=== PATIENT | female | born 1970 | race Caucasian/White ===

== ENCOUNTER 2016-12-25 16:16 | Emergency (ER) | payer SELFPAY ==
[~2016-12-25] VITALS: Ht 177.8 cm; Wt 75.0 kg
[2016-12-25 16:18] VITALS: BP 139/80; PULSE 78; RESP 15; TEMP 98.7; O2SAT 97
[2016-12-25 18:07] VITALS: BP 133/70; PULSE 61; RESP 16; TEMP 97.9; O2SAT 97
[2016-12-25] MEDS ORDERED: traMADol HCL 50 MG TAB PO ONE (18:30)
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
[2016-12-25] MEDS ORDERED: CLIN1CAP6 PO (19:40)
[2016-12-25] MEDS ORDERED: TRAM50TA PO (19:40)
== END 2016-12-25 20:04 | disposition home or self-care (01) ==
LOC: NEPD 16:16
DX: K04.7 Periapical abscess without sinus (principal); S00.33XA Contusion of nose, initial encounter; W22.8XXA Striking against or struck by other objects, initial encounter
CPT/HCPCS: 70486; 99285

== ENCOUNTER 2017-12-31 19:38 | Observation (INO) ==
--- NOTE | 2017-12-31 20:20 | ED ---
HPI General Chief Complaint: Chest Pain Stated Complaint: Rt Face Pain/Chest Pain Time Seen by Provider: 12/31/17 20:13 Source: patient Mode of arrival: ambulatory Limitations: no limitations History of Present Illness HPI narrative: 47-year-old female presents to the emergency department for complaint of right-sided facial pain and jaw pain times 7 days and 3 days of left-sided chest discomfort. Patient denies personal history of CAD hypertension or diabetes admits to tobaccoism. Prior treatment for high cholesterol. Patient states that she has had similar presentations of current symptoms in the past each time she has dental issues or dental infection the pain begins in the jaw increases to facial pain then referred to the ear and neck on the ipsilateral side and typically approximately 3-4 days later developed some type of chest discomfort. Patient states she was recently released from detention during which time over 2 months. She was on several rounds of oral antibiotic for dental infections was seen by a dentist and had 2 teeth extracted from the left side. Patient states that she is scheduled to see a dentist this upcoming week for possible dental extraction of incisors. Patient states that dental pain increased tonight and after onset of increased dental pain started noticing increased chest pain. Patient rates her general pain 9/ 10 in intensity in her chest discomfort 7/10 in intensity. Chest pain is nonradiating. Patient's had no shortness of breath no sweats no nausea or vomiting. Patient has had subjective fever without chills. Patient states she is allergic to aspirin but is able to take ibuprofen and Aleve. Patient is also been taking acetaminophen. Patient denies any substance use or tobacco use although admits to prior substance abuse approximately 10 years ago. Patient denies any injury or fall. Patient is unable to identify exacerbating or alleviating factors although palpation of the chest wall does seem to aggravate her chest discomfort which is sharp and stabbing in nature and taking a deep breath as well seems to aggravate her chest discomfort. Patient denies any lower extremity pain or swelling. No recent long distance travel protracted bedrest or surgical procedure. No history of DVT or PE. Patient takes no hormone replacement therapy. MD complaint: Reports chest pain STEMI Alert: No Onset (ago): day(s) (chest pain x 23 days; dental pain x 7 days) Duration: constant Onset: other (after increasing facial dental pain) Pain location: Reports left chest Severity: severe (chest pain 7/10; facial dental pain 9/10) Severity scale (1-10): 7 Quality: Reports sharp Pain radiation: Reports none Relieving factors: nothing Exacerbating factors: inspiration and palpation Context: Reports other (dental pain); Denies recent illness, recent surgery, recent immobilization, recent travel, trauma/injury, new medications and history of DVT/PE Associated symptoms: Reports fever (subjective); Denies nausea, vomiting, diaphoresis, dyspnea, sense of impending doom, syncope, palpitations, cough and leg swelling Treatments prior to arrival chest pain: Reports other (tylenol and ibuprofen) Related Data On Oral Contraceptives: No Home Medications Medication Instructions Recorded Confirmed No Known Home Medications 12/31/17 12/31/17 Allergies Allergy/AdvReac Type Severity Reaction Status Date / Time aspirin Allergy Severe EDEMA Verified 12/31/17 20:53 cephalexin Allergy Severe ANAPHYLAXIS Verified 12/31/17 20:53 Penicillins Allergy Severe RESPIRATORY Verified 12/31/17 20:53 DISTRESS Review of Systems ROS: all other systems reviewed are negative PMFSH History History Provided By: Patient and Medical Record Medical History Medical History Hx of cervical cancer (Acute) Surgical History Surgical History H/O tubal ligation (Acute) Hx of section (Acute) Hx of colposcopy with cervical biopsy (Acute) Social History Social History Substance History: Past History Second Hand Smoke Exposure: No Smoking Status: Former smoker How Often Do You Have a Drink Containing Alcohol: Monthly or less Recent Travel in [facility] within the Last 8 Weeks: No Recent Out of Country Travel within the Last 8 Weeks: No Exam Narrative Exam Narrative: GENERAL: Well-nourished, well-developed patient. SKIN: Focused skin assessment warm/dry. HEAD: Normocephalic. EYES: No scleral icterus. No injection or drainage. ENT: Mucous membranes moist airway is patent poor dentition with several loose teeth and gingivitis no edema of the soft tissue or purulent drainage, no trismus. NECK: Supple, trachea midline. No JVD or lymphadenopathy. CARDIOVASCULAR: Regular rate and rhythm without murmurs, gallops, or rubs. No murmur. RESPIRATORY: Breath sounds equal bilaterally. No accessory muscle use. GASTROINTESTINAL: Abdomen soft, non-tender, nondistended. MUSCULOSKELETAL: No cyanosis, or edema. BACK: Nontender without obvious deformity. No CVA tenderness. Course Initial Documented Vital Signs Temperature 97.8 F 12/31/17 19:42 Pulse Rate 69 12/31/17 19:42 Respiratory Rate 20 12/31/17 19:42 Blood Pressure 180/83 H 12/31/17 19:42 Pulse Oximetry 99 12/31/17 19:42 Last Documented Vital Signs Temperature 97.8 F 12/31/17 19:42 Pulse Rate 66 12/31/17 20:50 Respiratory Rate 16 12/31/17 20:50 Blood Pressure 110/53 L 12/31/17 20:50 Pulse Oximetry 99 12/31/17 20:53 Medical Decision Making MDM Narrative Medical decision making narrative: 47-year-old female presents to the emergency department for recurrent dental pain and facial pain as well as complaint of chest pain; patient placed on monitor IV access obtained specimens collected and sent for resulting. CBC w/diff, ekg, and cxr within normal range Chest pain 0/10 in intensity after sublingual nitro glycerin x3; jaw pain persistent but tolerable. 47-year-old female with prior history of high cholesterol and prior tobacco use presents with left-sided chest pain responsive to sublingual nitroglycerin we will admit to chest pain center per protocol at this point time afebrile no tachycardia normal white cell count and differential no murmurs suspicion is low for endocarditis. Patient be started on clindamycin for recurrent dental infection dental pain. Obs admit to [facility] service for MANAGER LSW protocol, discussed with Dr Luther. Medical Screen Exam Complete: Yes Emergency Medical Condition: Yes Differential Diagnosis Differential Diagnosis: dentalgia, dental abscess, periodontal disease, chest pain, acs, mi, endocarditis Medical Records Medical records reviewed: Yes I reviewed the patient's medical records. Lab Data Result diagrams: 12/31/17 20:35 12/31/17 20:35 Lab Results 12/31/17 12/31/17 12/31/17 Range/Units 20:35 20:35 20:35 CBC w Diff Auto diff final WBC 10.3 (4.0-11.0) th/mm3 RBC 4.44 (4.00-5.30) mil/mm3 Hgb 13.2 (11.6-15.3) gm/dL Hct 39.4 (35.0-46.0) % MCV 88.7 (80.0-100.0) fL MCH 29.8 (27.0-34.0) pg MCHC 33.6 (32.0-36.0) % RDW 12.7 (11.6-17.2) % Plt Count 317 (150-450) th/mm3 MPV 8.6 (7.0-11.0) fL Neut % (Auto) 63.1 (16.0-70.0) % Lymph % (Auto) 30.2 (9.0-44.0) % Young % (Auto) 4.4 (0.0-8.0) % Eos % (Auto) 1.4 (0.0-4.0) % Baso % (Auto) 0.9 (0.0-2.0) % Neut # (Auto) 6.5 (1.8-7.7) th/mm3 Lymph # (Auto) 3.1 (1.0-4.8) th/mm3 Young # (Auto) 0.5 (0.0-0.9) th/mm3 Eos # (Auto) 0.1 (0.0-0.4) th/mm3 Baso # (Auto) 0.1 (0.0-0.2) th/mm3 WBC Differential . Differential Comment . PT 9.6 L (9.8-11.6) sec INR 0.9 Ratio APTT 25.7 (24.3-30.1) sec Sodium 140 (136-145) meq/L Potassium 4.0 (3.5-5.1) meq/L Chloride 104 (98-107) meq/L Carbon Dioxide 26.7 (21.0-32.0) meq/L Anion Gap 9 (5-15) meq/L BUN 15 (7-18) mg/dL Creatinine 0.77 (0.50-1.00) mg/dL Estimated GFR 80 L (>89) mL/min Random Glucose 85 (74-106) mg/dL Calcium 8.6 (8.5-10.1) mg/dL Magnesium 1.9 (1.5-2.5) mg/dL Total Bilirubin 0.1 L (0.2-1.0) mg/dL AST 19 (15-37) U/L ALT 22 (10-53) U/L Alkaline Phosphatase 97 (45-117) U/L Total Creatine Kinase 106 (26-192) U/L CK-MB (CK-2) 2.6 (0.5-3.6) ng/mL Troponin I Less than 0.02 L (0.02-0.05) ng/mL Total Protein 6.7 (6.4-8.2) g/dL Albumin 3.2 L (3.4-5.0) g/dL Imaging Data Radiologist's impression: Chest X-Ray 12/31/17 20:14 CONCLUSION: No acute cardiopulmonary disease. ECG Data EKG Prior to Arrival: No Prior ECG tracings: not available for review Interpretation: EKG: Normal sinus rhythm rate [address] elevation injury pattern or ectopy noted normal axis Discharge Plan Discharge Disposition Patient Disposition: 30 Still Patient Discharge Condition Condition: Stable Discharge Details Diagnosis: Chest pain, Dentalgia Physicians Team ED Provider: Danica Stern Primary Care Provider: Primary Care Radha Jha Rxs /Orders / Referrals /Forms Prescriptions: No Action No Known Home Medications RF: 0 Discharge Instructions Patient Printed Instructions: Chest Pain (ED) Status ED Status: With Doctor
[2017-12-31] MEDS: Sodium Chlor 0.9% Inj 500 ML IV.CONT SCH (20:35)
[2017-12-31 20:43] LABS: Baso # (Auto) 0.1 th/mm3 (0.0-0.2); Baso % (Auto) 0.9 % (0.0-2.0); Eos # (Auto) 0.1 th/mm3 (0.0-0.4); Eos % (Auto) 1.4 % (0.0-4.0); Hematocrit 39.4 % (35.0-46.0); Hemoglobin 13.2 gm/dL (11.6-15.3); Lymph # (Auto) 3.1 th/mm3 (1.0-4.8); Lymph % (Auto) 30.2 % (9.0-44.0); Mean Corpuscular HGB Conc 33.6 % (32.0-36.0); Mean Corpuscular Hemoglobin 29.8 pg (27.0-34.0); Mean Corpuscular Volume 88.7 fL (80.0-100.0); Mean Platelet Volume 8.6 fL (7.0-11.0); Mono # (Auto) 0.5 th/mm3 (0.0-0.9); Mono % (Auto) 4.4 % (0.0-8.0); Neut # (Auto) 6.5 th/mm3 (1.8-7.7); Neut % (Auto) 63.1 % (16.0-70.0); Platelet Count 317 th/mm3 (150-450); Red Blood Count 4.44 mil/mm3 (4.00-5.30); Red Cell Distribution Width 12.7 % (11.6-17.2); White Blood Count 10.3 th/mm3 (4.0-11.0)
--- NOTE | 2017-12-31 20:55 | XR ---
EXAM DATE: 12/31/2017 8:52 PM EDT AGE/SEX: 47 years / Female INDICATIONS: Chest pain with black and green sputum. CLINICAL DATA: This is the patient's initial encounter. Patient reports that signs and symptoms have been present for 1 week and indicates a pain score of 6/10. MEDICAL/SURGICAL HISTORY: . Tooth infection. None. COMPARISON: No prior exams available for comparison. FINDINGS: A single AP view of the chest demonstrates the lungs to be symmetrically aerated without evidence of mass, infiltrate or effusion. The cardiomediastinal contours are unremarkable. Osseous structures a re intact. CONCLUSION: No acute cardiopulmonary disease. Electronically signed by: Donald Hernandez MD 12/31/2017 8:54 PM EDT
[2017-12-31 21:03] LABS: Activated Partial Thrombo Time 25.7 sec (24.3-30.1); INR 0.9 Ratio; Prothrombin Time 9.6 sec (9.8-11.6)
[2017-12-31 21:30] LABS: Chloride 104 meq/L (98-107); Sodium 140 meq/L (136-145)
[2017-12-31 21:35] LABS: Albumin 3.2 g/dL (3.4-5.0); Anion Gap 9 meq/L (5-15); Blood Urea Nitrogen 15 mg/dL (7-18); Calcium 8.6 mg/dL (8.5-10.1); Carbon Dioxide 26.7 meq/L (21.0-32.0); Glucose,Random 85 mg/dL (74-106); Magnesium 1.9 mg/dL (1.5-2.5)
[2017-12-31 21:38] LABS: Alanine Aminotransferase 22 U/L (10-53); Aspartate Aminotransferase 19 U/L (15-37); Glomerular Filtration Rate 80 mL/min (>89)
[2017-12-31 21:40] LABS: Total Protein 6.7 g/dL (6.4-8.2)
[2017-12-31 21:41] LABS: Alkaline Phosphatase 97 U/L (45-117); Creatine Kinase 106 U/L (26-192)
[2017-12-31 21:53] LABS: Creatine Kinase MB 2.6 ng/mL (0.5-3.6)
[2017-12-31] MEDS ORDERED: Sod Chloride 0.9% Inj 1,000 ML IV.SIG SCH (22:00)
[2018-01-01] MEDS: Acetaminophen 325 MG Tablet PO PRN ×2 (00:23→08:08)
[2018-01-01 00:26] LABS: Creatine Kinase 95 U/L (26-192)
[2018-01-01] MEDS: Sodium Chlor 0.9% Inj 500 ML IV.CONT SCH (03:09)
[2018-01-01 03:11] LABS: Creatine Kinase 85 U/L (26-192)
[2018-01-01 04:17] VITALS: PULSE 60
--- NOTE | 2018-01-01 07:26 | P.HP ---
History of Present Illness Primary Care Physician: No Primary Care Physician Chief Complaint: Chest pain and dental pain History of Present Illness: 47-year-old female with no chronic medical illnesses who presented to the hospital because of multiple complaints of dental pain and chest pain. Patient states that both of which have been ongoing for the last 2 weeks. She indicates that she has pain is located on the left sternal border without any radiation to the neck, back, shoulder, arm. She states that the pain has been intermittent usually happening when she is at rest, states that the pain is an 8 /10 on pain scale lasting anywhere from seconds to 5 minutes at a time and resolves on its own. He denies any exertional chest discomfort. He denies any nausea, vomiting, lightheadedness, dizziness, diaphoresis. Indicates that she has had some minimal shortness of breath. She denies any fever, chills, cough, hemoptysis. Patient is also had dental pain over the last 2 weeks as well. She does have significant dental problems making it difficult for her to eat. She has been going to the dentist over the last couple months. She did have 2 teeth removed 2 months ago. She does have an appointment on Thursday for further evaluation at the dentist. Presently the patient is asymptomatic. Patient with minimal risk factors to include history of tobacco use, family history of heart disease. Patient states that approximately 4 years ago she did undergo cardiac evaluation with serial cardiac enzymes, EKGs and was ruled out for any acute coronary event and discharged home. Patient has never undergone any cardiac stress testing. - Diagnosis (1) Chest pain (2) Dentalgia Review of Systems All other systems reviewed negative except as stated in HPI Ears, Nose, Mouth, and Throat: Reports mouth pain Cardiovascular: Reports chest pain PMFSH - History History Provided By: Patient, Medical Record - Medical History Medical History: Medical History (Last Reviewed 01/01/18 @ 07:21 by MADI Saeed) Hx of cervical cancer - Surgical History Surgical History: Surgical History (Last Reviewed 01/01/18 @ 07:21 by MADI Saeed) H/O tubal ligation Hx of section Hx of colposcopy with cervical biopsy - Family History Family History: Family History (Last Updated 01/01/18 @ 07:17 by MADI Saeed) Mother Family history of breast cancer Father Family history of myocardial infarction - Tobacco History Second Hand Smoke Exposure: No Tobacco Use In Past 30 Days: No Smoking Status: Former smoker Number of Pack Years (if former smoker): 33 - Alcohol History How Often Do You Have a Drink Containing Alcohol: Monthly or less - Substance Use History Substance History: Past History - Substance Use Type Crack/Cocaine Last Used: 2006 - Travel History Recent Travel in the [place] Within the Last 8 Weeks: No Recent Travel Out of the Country Within the Last 8 Weeks: No - Immunization History Tetanus Immunization: Unsure Medications and Allergies Active Medications: Active Medications Acetaminophen (Tylenol) 650 mg PO Q4H PRN PRN Reason: pain 1 to 10 Last Admin: 01/01/18 00:23 Dose: 650 mg Sodium Chloride (Ns Inj) 500 mls @ 70 mls/hr IV.CONT .Q7H9M ANIKA Last Admin: 01/01/18 03:09 Dose: 70 mls/hr Sodium Chloride (Ns Inj) 1,000 mls @ 0 mls/hr IV.SIG BOLUS ANIKA Nitroglycerin (Nitrostat Sl) 0.4 mg SL Q5M PRN PRN Reason: CHEST PAIN Sodium Chloride (Ns Flush) 2 ml IV.FLUSH BID ANIKA Sodium Chloride (Ns Flush) 2 ml IV.FLUSH PRN PRN PRN Reason: FLUSH AFTER USING IV ACCESS Allergies Allergy/AdvReac Type Severity Reaction Status Date / Time aspirin Allergy Severe EDEMA Verified 12/31/17 20:53 cephalexin Allergy Severe ANAPHYLAXIS Verified 12/31/17 20:53 Penicillins Allergy Severe RESPIRATORY Verified 12/31/17 20:53 DISTRESS Home Medications Medication Instructions Recorded Confirmed Type No Known Home Medications 12/31/17 12/31/17 History Exam Vital signs: Vital Signs 12/31/17 19:42 12/31/17 20:25 12/31/17 20:50 Temperature 97.8 F Pulse Rate 69 76 66 Respiratory Rate 20 16 16 Blood Pressure 180/83 H 112/70 110/53 L Pulse Oximetry 99 99 99 12/31/17 20:53 12/31/17 22:14 12/31/17 23:15 Temperature 98.2 F Pulse Rate 83 Respiratory Rate 15 Blood Pressure 109/80 Pulse Oximetry 99 99 95 12/31/17 23:56 01/01/18 00:00 01/01/18 04:00 Temperature 98.8 F 98.0 F Pulse Rate 62 73 60 Respiratory Rate 18 18 Blood Pressure 124/71 122/70 Pulse Oximetry 95 95 Intake & Output 12/31/17 01/01/18 01/01/18 18:59 06:59 18:59 Intake Total 500 / 500 Balance 500 / 500 Weight 73 kg Intake: IV 500 / 500 NS Inj 500 ML @ 70 mls/hr IV. 500 / 500 CONT .Q7H9M ANIKA Rx#:[id number] Other: # Voids 3 Weight On Admission 73 kg Narrative: GENERAL: Well-developed, well-nourished, in no acute distress. alert and orientated HEENT: Head is normocephalic without any lesions or masses noted. Facial features are symmetric. Eyes: Pupils equal round reactive to light. Extraocular muscles are intact. Conjunctivae were clear. Oropharyngeal: Pharynx without any erythema edema. Tongue is midline without deviation. Buccal mucosa is moist without any masses or lesions. Dentition in poor repair NECK: Supple without any masses. Trachea midline no deviation. No JVD, no bruits are appreciated CARDIAC: Regular rhythm, regular rate. S1/S2 are heard. No murmurs gallops or rubs. LUNGS: Clear to auscultation bilaterally. No wheeze, rhonchi or rales. No use of accessory muscles on inspiration or expiration. ABDOMEN: Soft, nontender. Nondistended. Bowel sounds heard in all 4 quadrants. No organomegaly or masses. Negative rebound, negative guarding EXTREMITIES: No edema, pulses are equal bilaterally. No cyanosis or clubbing NEUROLOGY: Mood and affect appear appropriate. Cranial nerves II through XII grossly intact. Muscle strength 5/5 in upper and lower extremities bilaterally. Deep tendon reflexes are 2+ in upper and lower extremities bilaterally. Results - Labs CBC & Chem 7: 12/31/17 20:35 12/31/17 20:35 Labs: Laboratory Results - last 24 hr 12/31/17 12/31/17 12/31/17 20:35 20:35 20:35 CBC w Diff Auto diff final WBC 10.3 RBC 4.44 Hgb 13.2 Hct 39.4 MCV 88.7 MCH 29.8 MCHC 33.6 RDW 12.7 Plt Count 317 MPV 8.6 Neut % (Auto) 63.1 Lymph % (Auto) 30.2 [place] % (Auto) 4.4 Eos % (Auto) 1.4 Baso % (Auto) 0.9 Neut # (Auto) 6.5 Lymph # (Auto) 3.1 [place] # (Auto) 0.5 Eos # (Auto) 0.1 Baso # (Auto) 0.1 WBC Differential . Differential Comment . PT 9.6 L INR 0.9 APTT 25.7 Sodium 140 Potassium 4.0 Chloride 104 Carbon Dioxide 26.7 Anion Gap 9 BUN 15 Creatinine 0.77 Estimated GFR 80 L Random Glucose 85 Calcium 8.6 Magnesium 1.9 Total Bilirubin 0.1 L AST 19 ALT 22 Alkaline Phosphatase 97 Total Creatine Kinase 106 CK-MB (CK-2) 2.6 Troponin I Less than 0.02 L Total Protein 6.7 Albumin 3.2 L 12/31/17 01/01/18 23:30 02:30 CBC w Diff WBC RBC Hgb Hct MCV MCH MCHC RDW Plt Count MPV Neut % (Auto) Lymph % (Auto) [place] % (Auto) Eos % (Auto) Baso % (Auto) Neut # (Auto) Lymph # (Auto) [place] # (Auto) Eos # (Auto) Baso # (Auto) WBC Differential Differential Comment PT INR APTT Sodium Potassium Chloride Carbon Dioxide Anion Gap BUN Creatinine Estimated GFR Random Glucose Calcium Magnesium Total Bilirubin AST ALT Alkaline Phosphatase Total Creatine Kinase 95 85 CK-MB (CK-2) Troponin I Less than 0.02 L Less than 0.02 L Total Protein Albumin - Imaging Impressions Chest X-Ray 12/31/17 20:14 CONCLUSION: No acute cardiopulmonary disease. Caprini VTE Risk Assessment Caprini VTE Risk Assessment: No/Low Risk (score <= 1) Caprini Risk Assessment Model: Point Value = 1 Point Value = 2 Point Value = 3 Point Value = 5 Age 41-60 Minor surgery BMI > 25 kg/m2 Swollen legs Varicose veins or History of unexplained or recurrent spontaneous Oral contraceptives or hormone replacement Sepsis (< 1 month) Serious lung disease, including pneumonia (< 1 month) Abnormal pulmonary function Acute myocardial infarction Congestive heart failure (< 1 month) History of inflammatory bowel disease Medical patient at bed rest Age 61-74 Arthroscopic surgery Major open surgery (> 45 min) Laparoscopic surgery (> 45 min) Malignancy Confined to bed (> 72 hours) Immobilizing plaster cast Central venous access Age >= 75 History of VTE Family history of VTE Factor V Leiden Prothrombin [id number] Lupus anticoagulant Anticardiolipin antibodies Elevated serum homocysteine Heparin-induced thrombocytopenia Other congenital or acquired thrombophilia Stroke (< 1 month) Elective arthroplasty Hip, pelvis, or leg fracture Acute spinal cord injury (< 1 month) Prophylaxis Regimen: Total Risk Factor Score Risk Level Prophylaxis Regimen 0-1 Low Early ambulation 2 Moderate Order ONE of the following: *Sequential Compression Device (SCD) *Heparin 5000 units SQ BID 3-4 Higher Order ONE of the following medications: *Heparin 5000 units SQ TID *Enoxaparin/Lovenox 40 mg SQ daily (WT < 150 kg, CrCl > 30 mL/min) *Enoxaparin/Lovenox 30 mg SQ daily (WT < 150 kg, CrCl > 10-29 mL/min) *Enoxaparin/Lovenox 30 mg SQ BID (WT < 150 kg, CrCl > 30 mL/min) AND/OR *Sequential Compression Device (SCD) 5 or more Highest Order ONE of the following medications: *Heparin 5000 units SQ TID (Preferred with Epidurals) *Enoxaparin/Lovenox 40 mg SQ daily (WT < 150 kg, CrCl > 30 mL/min) *Enoxaparin/Lovenox 30 mg SQ daily (WT < 150 kg, CrCl > 10-29 mL/min) *Enoxaparin/Lovenox 30 mg SQ BID (WT < 150 kg, CrCl > 30 mL/min) AND *Sequential Compression Device (SCD) Assessment and Plan - Assessment (1) Chest pain Code(s): R07.9 - Chest pain, unspecified Status: Acute (2) Dentalgia Code(s): K08.89 - Other specified disorders of teeth and supporting structures Status: Acute - Plan Chest pain, atypical -Patient with minimal risk factors to include history of tobacco use, family history of heart disease -Patient has been ruled out for acute coronary event with serial cardiac enzymes that have remained negative -EKGs had a reviewed by myself which indicate normal sinus rhythm without any changes -Exercise stress test was performed and indicated normal exam, no signs of ischemia -Continue nitroglycerin as needed -Continue monitor telemetry Dentalgia -Patient was given clindamycin emergency department -Will continue Clindamycin PO -Continue pain control -Patient to keep dental appointment on Thursday DVT prevention -Low risk, early in relation Discharge Planning: Discharge home in stable condition Activity: Ad crystal. Diet: Regular diet Medication per medication reconciliation Follow-up with primary medical doctor in 1 week (1) Chest pain Qualifiers: Chest pain type: precordial pain Qualified Code(s): R07.2 - Precordial pain
[2018-01-01 08:11] VITALS: BP 112/71; TEMP 98.7; O2SAT 97
--- NOTE | 2018-01-01 08:25 | ECG ---
Date Performed: 01/01/2018 Time Performed: 02:25:28 PTAGE: 47 years EKG: SINUS BRADYCARDIA WITH SINUS ARRHYTHMIA BORDERLINE ECG PREVIOUS TRACING : 12/31/2017 23.22 Since previous tracing, no significant change noted DOCTOR: Ankur Walker Interpretating Date/Time 01/01/2018 08:25:03
--- NOTE | 2018-01-01 08:30 | ECG ---
Date Performed: 12/31/2017 Time Performed: 23:22:36 PTAGE: 47 years EKG: Sinus rhythm NORMAL ECG PREVIOUS TRACING : 12/31/2017 20.23 Since previous tracing, no significant change noted DOCTOR: Ankur Walker Interpretating Date/Time 01/01/2018 08:29:43
--- NOTE | 2018-01-01 08:31 | ECG ---
Date Performed: 12/31/2017 Time Performed: 20:23:10 PTAGE: 47 years EKG: Sinus rhythm NORMAL ECG NO PREVIOUS TRACING DOCTOR: Ankur Walker Interpretating Date/Time 01/01/2018 08:30:04
[2018-01-01 09:14] VITALS: RESP 16
--- NOTE | 2018-01-01 14:47 | TR ---
Date Performed: 01/01/2018 Time Performed: 08:40:38 DOCTOR: Ankur Walker DRUG LIST: CLINICAL HISTORY: REASON FOR TEST: REASON FOR ENDING: Completed Protocol OBSERVATION: Arrhythmia: None Chest Pain: None CONCLUSION: Patient tolerated JOSE protocol with Total Exercise Time=6:38 Maximum MV=774 % Max HR Achieved=90.0% Maximum JF=503/95, Testing stopped secondary to goals acheived. During peak exercis e, Patient was asymptomatic, quick upsloping ST segments. HR and BP appropriate response to exercise. Recovery period, HR and BP returned to baseline COMMENTS: Patient exercised using the Jose protocol. No electrocardiographic changes were seen to suggest ischemia. Hemodynamic response to exercise was normal. No significant arrhythmia was prese nt.
== END 2018-01-01 10:47 | disposition home or self-care (01) ==
LOC: PHEDA 19:38 → PHED 19:38 → PHEDA 22:49 → PH3 22:54
PROVIDERS: ADMIT Internal Medicine; ATTEND Internal Medicine